=== PATIENT | male | born 1940 ===

== ENCOUNTER 2023-12-24 06:21 | Day surgery (SDC) | payer OTHER, SELFPAY ==
[2023-12-07 09:15] VITALS: BMI 23.3
[2023-12-07 10:23] LABS: Hematocrit 34.7 % (39.0-52.0); Mean Corp Hgb Conc. 31.7 g/dL (33.0-37.0); Mean Corpuscular Volume 75.6 fL (80.0-94.0); Mean Platelet Volume 8.9 fL (7.4-10.4); Platelet Count 269 10^3/uL (130-400); Red Blood Cell Count 4.59 10^6/uL (4.70-6.10); Red Cell Dist. Width 22.3 % (11.5-14.5); White Blood Cell Count 10.2 10^3/uL (4.8-10.8)
[2023-12-07 10:55] LABS: ALT (SGPT) 26 U/L (0-50); AST (SGOT) 66 U/L (17-59); Albumin 3.7 g/dl (3.5-5.0); Alkaline Phosphatase 542 U/L (38-126); Blood Urea Nitrogen 34 mg/dl (9-20); Calcium 9.3 mg/dl (8.4-10.2); Carbon Dioxide 26 mmol/L (22-30); Chloride 99 mmol/L (98-107); Estimated Creatinine Clearance 65 ml/min; Glucose 91 mg/dl (70-99); Potassium 3.8 mmol/L (3.5-5.1); Sodium 137 mmol/L (135-145); Total Bilirubin 1.1 mg/dl (0.2-1.3); Total Protein 6.6 g/dl (6.3-8.2); eGFR > 60.00
[2023-12-24] VITALS (13 sets, daily range): BP systolic 90–136; BP diastolic 53–81; BMI 23.3
[2023-12-24] MEDS: NORMOSOL-R 1000 IV (09:34)
[2023-12-24] MEDS: ZOFRAN 4 MG IV (11:08)
--- NOTE | 2023-12-24 15:27 | PTCARENOTE ---
1500 pt called at home, spoke to ,to restart xaralto tonight directed by Dr Casper after discharge today. Jonny Galarza RN
== END 2023-12-24 13:30 | disposition home or self-care (01) ==
LOC: SDS 06:21
PROVIDERS: ATTENDING PHYSICIAN Otolaryngology; FAMILY PHYSICIAN Family Medicine; OTHER PHYSICIAN Internal Medicine Cardiovascular Disease; OTHER PHYSICIAN Internal Medicine Hematology & Oncology
DX: J38.00 Paralysis of vocal cords and larynx, unspecified (principal); R13.12 Dysphagia, oropharyngeal phase
CPT/HCPCS: 31571; 36415; 80053; 85027; C1878